=== PATIENT | male | born 1975 | race African-American/Black ===

== ENCOUNTER 2018-04-10 19:11 | Emergency (ER) | payer SELFPAY ==
[~2018-04-10] VITALS: Ht 175.3 cm; Wt 70.3 kg
--- NOTE | 2018-04-10 19:28 | Emergency Room Report ---
History of Present Illness General Chief Complaint: Pain Source: Patient Present Illness HPI Is a 42-year-old male with no past mental history. He presents with chief complaint of lower back pain. Onset for 2 weeks now. it got better but worse in the last couple days. Is bilaterally. He said it is so swollen. No fever chills but no nausea no vomiting. No trauma. No incontinence of bowel or urine. He said that he felt like his testicle are swollen. Denies any dysuria frequency. Denies any other complaint. Allergies: Coded Allergies: No Known Allergies (Unverified , 04/10/18) Patient History Past Medical History: none, see triage record, old chart reviewed Past Surgical History: none Pertinent Family History: none Social History: Denies: smoking Immunizations: other Reviewed Nursing Documentation: PMH: Agreed; PSxH: Agreed Nursing Documentation-PMH Past Medical History: No Stated History Review of Systems Eye: Denies: eye pain, blurred vision ENT: Denies: ear pain, nose congestion, throat swelling Respiratory: Denies: cough, shortness of breath Cardiovascular: Denies: chest pain, palpitations Gastrointestinal: Denies: abdominal pain, diarrhea, nausea, vomiting Musculoskeletal: Reports: back pain; Denies: joint pain Skin: Denies: rash Neurological: Denies: headache, numbness Endocrine: Denies: increased thirst, increased urine Hematologic/Lymphatic: Denies: easy bruising All Other Systems: negative except mentioned in HPI Physical Exam Vital Signs Date Time Temp Pulse Resp B/P (MAP) Pulse Ox O2 Delivery O2 Flow Rate FiO2 04/10/18 19:14 98.8 93 19 105/69 97 Room Air vitals normal Sp02 EP Interpretation: reviewed, normal General Appearance: well appearing, no apparent distress, alert Head: normocephalic, atraumatic Eyes: bilateral eye PERRL, bilateral eye EOMI ENT: hearing grossly normal, normal pharynx Neck: full range of motion, supple, no meningismus Respiratory: chest non-tender, lungs clear, normal breath sounds Cardiovascular #1: regular rate, rhythm, no murmur Gastrointestinal: normal bowel sounds, non tender, no mass, no organomegaly, no bruit, non-distended Genitourinary: penis normal, scrotum normal, other - No testicular tenderness Musculoskeletal: back normal - Bilateral lower paraspinous muscle tenderness, gait/station normal, normal range of motion Psychiatric: mood/affect normal Skin: warm/dry Medical Decision Making Diagnostic Impression: Primary Impression: Low back strain Qualified Codes: S39.012A - Strain of muscle, fascia and tendon of lower back , initial encounter ER Course Patient with lower back strain. He did remember that he was playing with his girlfriend was lifting her up. No evidence of cauda equina symptom, spinal after abscess or neoplastic process. No evidence of infection. We'll discharge home. Last Vital Signs Date Time Temp Pulse Resp B/P (MAP) Pulse Ox O2 Delivery O2 Flow Rate FiO2 04/10/18 19:14 98.8 93 19 105/69 97 Room Air Status: improved Disposition: HOME, SELF-CARE Condition: Stable Scripts Ibuprofen* (MOTRIN*) 600 Mg Tablet 600 MG ORAL THREE TIMES A DAY, #30 TAB 0 Refills Prov: Sincere Dorantes MD 04/10/18 Hydrocodone/Acetaminophen 5-325* (HYDROCODONE/ACETAMINOPHEN 5-325*) 1 Each Tablet 1 TAB ORAL Q6H PRN for For Pain, #15 TAB 0 Refills Prov: Sincere Dorantes MD 04/10/18 Additional Instructions: Follow-up with your doctor in 7 days. No heavy lifting. Return if worse. If not better, may need MRI. Sincere Dorantes MD Apr 10, 2018 19:28
[2018-04-10] MEDS ORDERED: Norco 5mg/325mg tab ORAL ONE (19:30)
[2018-04-10 19:35] VITALS: BP 117/73
[2018-04-10 20:04] LABS: APPEARANCE,URINE CLEAR; BILIRUBIN, URINE NEGATIVE (NEGATIVE); COLOR,URINE PALE YELLOW; GLUCOSE, URINE (UA) NEGATIVE (NEGATIVE); KETONES,URINE NEGATIVE (NEGATIVE); LEUKOCYTE ESTERASE ,URINE 1+ (NEGATIVE); NITRITE,URINE NEGATIVE (NEGATIVE); PH,URINE 5 (4.5-8.0); PROTEIN,URINE NEGATIVE (NEGATIVE); UROBILINOGEN,URINE NORMAL MG/DL (0.0-1.0)
[2018-04-10 20:41] VITALS: BP 120/80
[2018-04-10 20:42] VITALS: BP 120/80
[2018-04-10] MEDS ORDERED: HYDROCODON-ACE1 EA15 ORAL (20:46)
[2018-04-10] MEDS ORDERED: IBUPROFEN600 MG ORAL (20:46)
== END 2018-04-10 20:57 | disposition home or self-care (01) ==
LOC: EMR 20:01
DX: S39.012A Strain of muscle, fascia and tendon of lower back, initial encounter (principal); X58.XXXA Exposure to other specified factors, initial encounter; Y92.9 Unspecified place or not applicable
CPT/HCPCS: 81003; 99283